=== PATIENT | female | born 1960 | race Caucasian/White ===

== ENCOUNTER 2023-09-14 16:25 | Emergency (ER) | payer OTHER, SELFPAY ==
[2023-09-14 16:45] VITALS: BP 142/62; PULSE 76; RESP 18; TEMP 36.7; O2SAT 100
--- NOTE | 2023-09-14 16:53 | ED.URI ---
HPI - URI/Sore Throat General Chief Complaint: Upper Respiratory Infection Stated Complaint: covid/flu swab Time Seen by Provider: 09/14/23 16:50 Source: patient Mode of arrival: ambulatory Limitations: no limitations History of Present Illness HPI Narrative: 63-year-old female who presents to [facility] with complaints of head congestion, sore throat, some postnasal drainage with no fever since Wednesday. Patient reports she has been taking Claritin D for her symptoms. Patient has been exposed to COVID and Flu at work from co-workers. Patient denies any acute cough,shortness of breath or any noted wheezing, denies any body aches. MD elicited complaint: sore throat, rhinorrhea, nasal congestion and other (ear discomfort) Onset (ago): day(s) (day 3 of symptoms.) Pain scale (0-10): 3 Able to tolerate fluids by mouth: Yes Treatments prior to arrival: other (Claritin D) Related Data Home Medications Medication Instructions Recorded Confirmed levothyroxine 150 mcg tablet 150 mcg PO DAILY 09/14/23 09/14/23 triamterene 37.5 1 tablet PO DAILY 09/14/23 09/14/23 mg-hydrochlorothiazide 25 mg tablet Allergies Allergy/AdvReac Type Severity Reaction Status Date / Time methylprednisolone Allergy Swelling Verified 09/14/23 16:53 Review of Systems Review of Systems: CONSTITUTIONAL: Denies malaise, chills, sweats, or fever. EYES: Denies visual changes, redness, or discharge. ENT: Reports rhinorrhea, congestion, sinus pain,some otalgia and positive for sore throat. CARDIOVASCULAR: Denies chest pain, palpitations, or edema. RESPIRATORY: Reports no cough.? Denies dyspnea. GASTROINTESTINAL: Denies abdominal pain, nausea, vomiting, diarrhea SKIN: Denies rash or itching. MUSCULOSKELETAL: Denies myalgia. NEUROLOGIC: Denies headache. All systems reviewed & are unremarkable except as noted in HPI and below PMFSH Past Medical History Medical History (Updated 09/15/23 @ 11:50 by Jamilah Tate NP) Cholecystectomy planned Recurrent sinusitis Thyroid disorder hypothyroid Surgical History Surgical History H/O: hysterectomy Family History Family History Mother Lung cancer Hypertension Depression Thyroid disorder Sibling Carcinoma of colon Thyroid disorder Social History Social History Smoking status: Never smoker Alcohol intake: current Substance use: never Lack of Transportation: No Lack of Food: Never True Current Housing: I Have Housing Concerned About Future Housing: No Difficulty Paying Gas/Electric Bills: No Difficulty Paying for Meds: No Currently Unemployed: No Education: Associate Degree Difficulty w/ Childcare or Family Care: No Comments At time of signature, agree with nursing past medical, surgical, social and family history. There is no relevant family history pertinent to the presenting complaint Exam Narrative: GENERAL: Well-appearing, well-nourished, and in no acute distress. HEAD: Normocephalic EYES: PERRLA, conjunctivae clear ENT: Nares clear, turbinates edematous and erythematous, clear discharge, sinus pressure reported,. Mucous membranes moist. TM pearly sanchez with dull light reflex bilaterally; no tragal tenderness. Oropharynx erythematous without lesions. Tonsils not enlarged and without exudate, no drooling, no hoarseness, no trismus, uvula midline.post nasal discharge. NECK: Supple. No lymphadenopathy CHEST: Clear to auscultation, breath sounds equal. No wheezing, rhonchi, rales, or stridor. No respiratory distress, speaks in full sentences.no cough noted SAO2 100% on room air HEART: Regular rate and rhythm. No murmur heard. SKIN: Warm, dry, no rash. NEURO: Alert and oriented x3. PSYCH: Normal mood and affect Course Course Emergency Course: Patient is
== END 2023-09-14 17:35 | disposition home or self-care (01) ==
PROVIDERS: Emergency Provider Registered Nurse; PCP Internal Medicine Infectious Disease
DX: J06.9 Acute upper respiratory infection, unspecified (principal); Z20.822 Contact with and (suspected) exposure to COVID-19
CPT/HCPCS: 87081; 87426; 87804; 87880; 99213; G0463

== ENCOUNTER 2023-12-28 17:55 | Emergency (ER) | payer OTHER, SELFPAY ==
[2023-12-28 18:14] VITALS: BP 142/68; PULSE 90; RESP 16; TEMP 37.9; O2SAT 99
--- NOTE | 2023-12-28 18:27 | ED.URI ---
HPI - URI/Sore Throat General Chief Complaint: Upper Respiratory Infection Stated Complaint: Ear Pain/Sore Throat Time Seen by Provider: 12/28/23 18:25 Source: patient, RN notes reviewed and old records reviewed Mode of arrival: ambulatory Limitations: no limitations History of Present Illness HPI Narrative: 63 year old female who presents to express care with complaints of sore throat and ear pain or pressure, since yesterday afternoon with increased discomfort. Patient reports that she has was on Augmentin recently for a cat bite with medication completed last Wednesday. Patient reports that she was exposed to co-worker on Wednesday with cough and congestion and she also had her grandchildren over the weekend with cold symptoms. Patient reports fevers up to 99F at home and she has been taking Tylenol and antihistamines.Patient states that she has had some nausea off and on for the past few days also,denies any vomiting or diarrhea. MD elicited complaint: sore throat and other (ear pain) Onset (ago): day(s) (since yesterday afternoon) Pain scale (0-10): 9 Description of mucous: clear Able to tolerate fluids by mouth: Yes Treatments prior to arrival: acetaminophen and other (antihistamines) Related Data Home Medications Medication Instructions Recorded Confirmed levothyroxine 150 mcg tablet 150 mcg PO DAILY 09/14/23 12/28/23 Allergies Allergy/AdvReac Type Severity Reaction Status Date / Time methylprednisolone Allergy Swelling Verified 12/28/23 18:19 Review of Systems Review of Systems: CONSTITUTIONAL:Reports malaise, chills, sweats, or fever. EYES: Denies visual changes, redness, or discharge. ENT: Reports rhinorrhea, congestion, sinus pain,bilateral otalgia and sore throat. CARDIOVASCULAR: Denies chest pain, palpitations, or edema. RESPIRATORY: Reports some cough.?Denies dyspnea. GASTROINTESTINAL: Denies abdominal pain,some nausea,no vomiting,no diarrhea SKIN: Denies rash or itching. MUSCULOSKELETAL: Denies myalgia. NEUROLOGIC: Denies headache. All systems reviewed & are unremarkable except as noted in HPI and below PMFSH Past Medical History Medical History Kidney stones Recurrent sinusitis Thyroid disorder hypothyroid Surgical History Surgical History H/O: hysterectomy History of cholecystectomy Family History Family History Mother Lung cancer Hypertension Depression Thyroid disorder Sibling Carcinoma of colon Thyroid disorder Social History Social History Smoking status: Never smoker Alcohol intake: current Substance use: never Lack of Transportation: No Lack of Food: Never True Current Housing: I Have Housing Concerned About Future Housing: No Difficulty Paying Gas/Electric Bills: No Difficulty Paying for Meds: No Currently Unemployed: No Education: Associate Degree Difficulty w/ Childcare or Family Care: No Comments At time of signature, agree with nursing past medical, surgical, social and family history. There is no relevant family history pertinent to the presenting complaint Exam Narrative: GENERAL: Well-appearing, well-nourished, and in no acute distress. HEAD: Normocephalic EYES: PERRLA, conjunctivae clear ENT: Nares clear, turbinates edematous and erythematous, clear discharge. Mucous membranes moist. TM pearly sanchez with dull light reflex bilaterally; no tragal tenderness. Oropharynx erythematous without lesions. Tonsils not enlarged and without exudate, no drooling, no hoarseness, no trismus, uvula midline.post nasal drainage NECK: Supple. No lymphadenopathy CHEST: Clear to auscultation, breath sounds equal. No wheezing, rhonchi, rales, or stridor. No respiratory distress, speaks in full sentences.SAO2 99% on
[2023-12-28 18:53] VITALS: TEMP 37.3
== END 2023-12-28 18:53 | disposition home or self-care (01) ==
PROVIDERS: Emergency Provider Registered Nurse; PCP Internal Medicine Infectious Disease
DX: J06.9 Acute upper respiratory infection, unspecified (principal); J02.9 Acute pharyngitis, unspecified; E03.9 Hypothyroidism, unspecified
CPT/HCPCS: 87081; 87880; 99213; G0463